=== PATIENT | male | born 1970 | race Caucasian/White ===

== ENCOUNTER 2020-05-20 17:43 | Emergency (ER) | payer OTHER, SELFPAY ==
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
[2020-05-20 18:01] VITALS: BP 148/83; PULSE 71; RESP 16; TEMP 37.6; O2SAT 100
== END 2020-05-20 18:20 | disposition home or self-care (01) ==
PROVIDERS: Emergency Provider Nurse Practitioner; PCP Internal Medicine
DX: L24.7 Irritant contact dermatitis due to plants, except food (principal)
CPT/HCPCS: 99213; G0463

== ENCOUNTER 2022-09-09 01:25 | Day surgery (SDC) | payer OTHER, SELFPAY ==
[2022-08-21 15:32] VITALS: BMI 31.1
[2022-08-21 15:47] VITALS: BMI 31.1
[2022-09-09 12:59] VITALS: BP 139/78; PULSE 66; RESP 16; TEMP 36.3; O2SAT 97; BMI 31.1
[2022-09-09] MEDS: LACTATED RINGERS 1,000 ML 150 ML IV CONT (13:07)
--- NOTE | 2022-09-09 13:26 | PM.HPGS ---
History of Present Illness History of Present Illness Consent: Risks, benefits, and alternatives have been discussed and questions answered. Patient agrees to proceed with procedure. Chief complaint: neoplasm screening Narrative: Mode Perez is a 52 year old male Presents for screening colonoscopy. Patient's current weight appetite and bowel movements are normal. Patient denies abdominal pain. He has had no bleeding. Family history is noncontributory. Patient presents today for neoplasia screening. Review of Systems Review of Systems: Review of systems noncontributory. [facility] Past Medical History Medical History (Updated 09/09/22 @ 13:27 by Carlos Alberto Zhang MD) Hx of renal calculi Partial hearing loss Left ear Seasonal allergies Upper back pain Surgical History Surgical History (Updated 07/24/22 @ 15:11 by Daniella Manjarrez [facility]) H/O repair of right rotator cuff History of vasectomy Family History Family History (Updated 07/24/22 @ 15:17 by Daniella Manjarrez CMA) Grandparent Brain cancer Father Nonalcoholic fatty liver disease Grandparent Cerebrovascular accident Social History Social History (Updated 07/24/22 @ 15:19 by Daniella Manjarrez CMA) Smoking status: Never smoker Alcohol intake: current Drinks per week: 2 Alcohol use details: seldom; socially Substance use: never Substance use type: does not use Living arrangements: with family 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 Vital signs stable. HEENT exam is unremarkable. Patient is anicteric. Lungs are clear to auscultation and percussion. Heart is without murmur or extra sounds. Abdomen bowel sounds present soft nontender with no organomegaly. Digital external rectal exam is normal. Assessment and Plan Assessment and plan (1) Encounter for screening colonoscopy: Code(s): Z12.11 - Encounter for screening for malignant neoplasm of colon Status: Acute Assessment and Plan: Patient presents for neoplasia screening. Patient appears to be at average risk for colon polyps. Further recommendations may be given after endoscopy.
--- NOTE | 2022-09-09 14:01 | WPDANESEPPF ---
Anes - Initial Pre Proc Eval Procedure: Operation Date: 09/09/22 14:30 Proposed Procedures p Screening Colonoscopy - Carlos Alberto Zhang MD Date/Time: 09/09/22 14:01 Surgeon: Carlos Alberto Zhang MD Pre Op Diagnosis: neoplasm screening Patient Data Age: 52 Gender: M Height: 1.83 m Weight: 104 kg Last Vital Signs Temp 36.3 C L 09/09/22 12:59 Pulse 66 09/09/22 12:59 Resp 16 09/09/22 12:59 BP 139/78 09/09/22 12:59 Pulse Ox 97 09/09/22 12:59 O2 Del Method Room Air 09/09/22 12:59 Allergies Allergy/AdvReac Type Severity Reaction Status Date / Time No Known Allergies Allergy Verified 09/09/22 12:57 Patient hx anesthesia problems: none Family hx anesthesia problems: none Results Review: All pre-operative results and documents have been reviewed as part of the pre-operative evaluation. 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 Informed Consent: The patient's anesthetic plan and its attendant risks and benefits were discussed with the patient/family/POA. Questions were solicited and answers provided to the satisfaction of the patient/family/POA.
[2022-09-09 14:24] VITALS: BP 93/63; PULSE 70; RESP 22; O2SAT 97
[2022-09-09 14:34] VITALS: BP 100/63; PULSE 60; RESP 19; O2SAT 97
[2022-09-09 14:44] VITALS: BP 105/66; PULSE 64; RESP 19; O2SAT 98
== END 2022-09-09 14:50 | disposition home or self-care (01) ==
PROVIDERS: PCP Family Medicine; Visit Provider Internal Medicine Gastroenterology
PROC: 0DJD8ZZ Inspection of Lower Intestinal Tract, Via Natural or Artificial Opening Endoscopic (ICD-10-PCS; CPT 45378; principal; 2022-09-09 14:30)
DX: Z12.11 Encounter for screening for malignant neoplasm of colon (principal); K64.8 Other hemorrhoids; E66.9 Obesity, unspecified; Z68.31 Body mass index [BMI] 31.0-31.9, adult
CPT/HCPCS: 45378; J2704; J7120

== ENCOUNTER → 2023-08-02 08:40 | Outpatient (CLI) | payer OTHER, SELFPAY ==
--- NOTE | ~2023-08-02 | XR_ITS ---
XR thoracic spine 3V DATE: 08/02/2023 08:58 INDICATION: Thoracic back pain TECHNIQUE: AP, lateral, swimmer views COMPARISON: None FINDINGS: There is degenerative spurring, primarily in the lower thoracic region. No fracture or disl ocation or bone destruction. The thoracic pedicles are intact. No paraspinal soft tissue thickening. IMPRESSION: Degenerative spurring Reviewed, dictated and finalized at location A. IMPRESSION: Degenerative spurring
== END ==
PROVIDERS: PCP Physician Assistant Medical; Visit Provider Physician Assistant Medical
DX: M25.78 Osteophyte, vertebrae (principal); M54.9 Dorsalgia, unspecified
CPT/HCPCS: 72072